=== PATIENT | female | born 1970 ===

== ENCOUNTER 2019-06-25 08:14 | Outpatient (CLI) | payer OTHER ==
[~2019-06-25] VITALS: Ht 152.4 cm; Wt 81.6 kg
== END 2019-06-25 12:55 | disposition home or self-care (01) ==
LOC: OFIC 805 08:14
DX: H90.A22 Sensorineural hearing loss, unilateral, left ear, with restricted hearing on the contralateral side (principal); H92.02 Otalgia, left ear; M26.612 Adhesions and ankylosis of left temporomandibular joint; J31.0 Chronic rhinitis